=== PATIENT | female | born 1990 | race African-American/Black ===

== ENCOUNTER 2019-08-02 13:50 | Emergency (ER) | payer BC, OTHER ==
[~2019-08-02] VITALS: Ht 154.9 cm; Wt 59.0 kg
[~2019-08-02 13:50] MED LIST: HYDR-2761 PO
--- NOTE | 2019-08-02 14:52 | PHYS DOC ---
Past Medical History Past Medical History: No Pertinent History Past Surgical History: Appendectomy, Alcohol Use: None Drug Use: None Adult General Chief Complaint Chief Complaint: ABDOMINAL PAIN HPI HPI Patient is a 28 year old female patient without medical problem who presents with complaint of nausea and vomiting and dizziness. Patient complaining of episodes of nausea and vomiting for the last 2 weeks and states she has at least 3 episodes of vomiting after eating every day with upper abdominal pain as a sharp pain without radiation. Patient complaining of generalized weakness and dizziness as a constant problem for the same time. Patient denies urinary symptoms, diarrhea and constipation, fever and chills, history of the same problem. Patient had history of appendectomy and cholecystectomy. Patient admitted to use marijuana. Review of Systems Review of Systems Constitutional: Denies fever or chills [] Eyes: Denies change in visual acuity, redness, or eye pain [] HENT: Denies nasal congestion or sore throat [] Respiratory: Denies cough or shortness of breath [] Cardiovascular: No additional information not addressed in HPI [] GI: Reports abdominal pain, nausea, vomiting, denies bloody stools or diarrhea [] : Denies dysuria or hematuria [] Musculoskeletal: Denies back pain or joint pain [] Integument: Denies rash or skin lesions [] Neurologic: Denies headache, focal weakness or sensory changes [] Endocrine: Denies polyuria or polydipsia [] All other systems were reviewed and found to be within normal limits, except as documented in this note. Current Medications Current Medications Current Medications Medications (Trade) Dose Ordered Sig/Yovani Start Time Stop Time Status Last Admin Dose Admin Famotidine (Pepcid Vial) 20 mg 1X ONCE 08/02/19 16:15 08/02/19 16:16 DC Ketorolac Tromethamine (Toradol 30mg Vial) 30 mg 1X ONCE 08/02/19 16:15 08/02/19 16:16 DC Ondansetron HCl (Zofran) 4 mg 1X ONCE 08/02/19 15:00 08/02/19 15:01 DC 08/02/19 15:10 4 MG Sodium Chloride 1,000 ml @ 1,000 mls/hr Q1H 08/02/19 14:53 08/02/19 15:52 DC 08/02/19 15:10 1,000 MLS/HR Allergies Allergies Allergies Coded Allergies Type Severity Reaction Last Updated Verified No Known Drug Allergies 07/16/18 No Physical Exam Physical Exam Constitutional: Well developed, well nourished, mild distress, non-toxic appearance. [] HENT: Normocephalic, atraumatic, bilateral external ears normal, oropharynx moist, no oral exudates, nose normal. [] Eyes: PERRLA, EOMI, conjunctiva normal, no discharge. [] Neck: Normal range of motion, no tenderness, supple, no stridor. [] Cardiovascular:Heart rate regular rhythm, no murmur [] Lungs & Thorax: Bilateral breath sounds clear to auscultation [] Abdomen: Bowel sounds normal, soft, no tenderness, no masses, no pulsatile masses. [] Skin: Warm, dry, no erythema, no rash. [] Back: No tenderness, no CVA tenderness. [] Extremities: No tenderness, no cyanosis, no clubbing, ROM intact, no edema. [] Neurologic: Alert and oriented X 3, normal motor function, normal sensory function, no focal deficits noted. [] Psychologic: Affect anxious, judgement normal, mood normal. [] Current Patient Data Vital Signs Vital Signs Date Time Temp Pulse Resp B/P (MAP) Pulse Ox O2 Delivery O2 Flow Rate FiO2 08/02/19 14:15 98.4 117 22 133/87 (102) 100 Room Air 98.4 Lab Values Laboratory Tests Test 08/02/19 14:15 08/02/19 14:22 White Blood Count 7.7 x10^3/uL (4.0-11.0) Red Blood Count 5.29 x10^6/uL (3.50-5.40) Hemoglobin 15.2 g/dL (12.0-15.5) Hematocrit 45.4 % (36.0-47.0) Mean Corpuscular Volume 86 fL (79-100) Mean Corpuscular Hemoglobin 29 pg (25-35) Mean Corpuscular Hemoglobin Concent 33 g/dL (31-37) Red Cell Distribution Width 15.6 % (11.5-14.5) H Platelet Count 260 x10^3/uL (140-400) Neutrophils (%) (Auto) 70 % (31-73) Lymphocytes (%) (Auto) 22 % (24-48) L Monocytes (%) (Auto) 7 % (0-9) Eosinophils (%) (Auto) 0 % (0-3) Basophils (%) (Auto) 1 % (0-3) Neutrophils # (Auto) 5.4 x10^3/uL (1.8-7.7) Lymphocytes # (Auto) 1.7 x10^3/uL (1.0-4.8) Monocytes # (Auto) 0.6 x10^3/uL (0.0-1.1) Eosinophils # (Auto) 0.0 x10^3/uL (0.0-0.7) Basophils # (Auto) 0.0 x10^3/uL (0.0-0.2) Urine Collection Type Unknown Urine Color Randi Urine Clarity Clear Urine pH 6.0 Urine Specific Compton >=1.030 Urine Protein 30 mg/dL (NEG-TRACE) Urine Glucose (UA) Negative mg/dL (NEG) Urine Ketones (Stick) >=80 mg/dL (NEG) Urine Blood Small (NEG) Urine Nitrite Negative (NEG) Urine Bilirubin Small (NEG) Urine Urobilinogen Dipstick 1.0 mg/dL (0.2 mg/dL) Urine Leukocyte Esterase Small (NEG) Urine RBC 1-2 /HPF (0-2) Urine WBC 1-4 /HPF (0-4) Urine Squamous Epithelial Cells Mod /LPF Urine Bacteria Few /HPF (0-FEW) Urine Mucus Marked /LPF Sodium Level 135 mmol/L (136-145) L Potassium Level 3.6 mmol/L (3.5-5.1) Chloride Level 97 mmol/L (98-107) L Carbon Dioxide Level 25 mmol/L (21-32) Anion Gap 13 (6-14) Blood Urea Nitrogen 20 mg/dL (7-20) Creatinine 0.8 mg/dL (0.6-1.0) Estimated GFR (Cockcroft-Gault) 104.9 BUN/Creatinine Ratio 25 (6-20) H Glucose Level 84 mg/dL (70-99) Calcium Level 10.0 mg/dL (8.5-10.1) Total Bilirubin 0.4 mg/dL (0.2-1.0) Aspartate Amino Transferase (AST) 21 U/L (15-37) Alanine Aminotransferase (ALT) 26 U/L (14-59) Alkaline Phosphatase 69 U/L (46-116) Total Protein 8.3 g/dL (6.4-8.2) H Albumin 4.7 g/dL (3.4-5.0) Albumin/Globulin Ratio 1.3 (1.0-1.7) Lipase 114 U/L (73-393) Urine Opiates Screen Neg (NEG) Urine Methadone Screen Neg (NEG) Urine Barbiturates Neg (NEG) Urine Phencyclidine Screen Neg (NEG) Urine Amphetamine/Methamphetamine Neg (NEG) Urine Benzodiazepines Screen Neg (NEG) Urine Cocaine Screen Neg (NEG) Urine Cannabinoids Screen Pos (NEG) Urine Ethyl Alcohol Neg (NEG) POC Urine HCG, Qualitative Hcg negative (Negative) Laboratory Tests 08/02/19 14:15 Laboratory Tests 08/02/19 14:15 EKG EKG [] Radiology/Procedures Radiology/Procedures [] Course & Med Decision Making Course & Med Decision Making Pertinent Imaging studies reviewed. (See chart for details) Evaluation of patient in ER showed 28-year-old female patient with marijuana abuse and complaining of nausea and vomiting for 2 weeks and dizziness. Patient had unremarkable physical exam and labs except for positive UDS for marijuana. UA showed ketones. Patient treated with IV fluid and Zofran and tolerated oral intake. Patient advised to stop using marijuana and follow up with primary care physician for chronic nausea and vomiting. I've spoken with the patient and/or caregivers. I've explained the patient's condition, diagnosis and treatment plan based on information available to me at this time. I've answered the patient's and/or caregivers questions and addressed any concerns. The patient and/or caregivers have a good understanding the patient's diagnosis, condition and treatment plan as can be expected at this point. Vital signs have been stabilized. The patient's condition is stable for discharge from the emergency department. The patient will pursue further outpatient evaluation with her primary care provider or other designated consulting physician as outlined in the discharge instructions. Patient and/or caregivers are agreeable to this plan of care and follow-up instructions have been explained in detail. The patient and/or caregiv ers have received these instructions in written format and expressed understanding of these discharge instructions. The patient and her caregivers are aware that if any significant change in condition or worsening of symptoms should prompt him to immediately return to this of the closest emergency d epartment. If an emergent department is not readily available I would encourage him to call 911. Diamante Disclaimer Dragon Disclaimer This electronic medical record was generated, in whole or in part, using a voice recognition dictation system. Departure Departure Impression: Primary Impression: Nausea and vomiting Additional Impressions: Dizziness Marijuana abuse Disposition: HOME, SELF-CARE (at 1634) Condition: IMPROVED Referrals: NO PCP (PCP) Patient Instructions: Marijuana Abuse-Brief, Nausea and Vomiting Additional Instructions: Drink plenty of liquids Follow-up with your primary care physician in 3-5 days Return to ER if not getting better Scripts Famotidine (PEPCID) 20 Mg Tablet 20 MG PO BID, #30 TAB Prov: ANIYA BERNAL MD 08/02/19 Metoclopramide Hcl (REGLAN) 10 Mg Tablet 1 TAB PO TID, #30 TAB 0 Refills before food and bedtime Prov: ANIYA BERNAL MD 08/02/19 Problem Qualifiers Primary Impression: Nausea and vomiting Vomiting type: unspecified Vomiting Intractability: non-intractable Qualified Codes: R11.2 - Nausea with vomiting, unspecified ANIYA BERNAL MD Aug 02, 2019 14:52
[2019-08-02 14:53] LABS: BASO % 1 % (0-3); EOS % 0 % (0-3); HEMATOCRIT 45.4 % (36.0-47.0); HEMOGLOBIN 15.2 g/dL (12.0-15.5); LYMPH # 1.7 x10^3/uL (1.0-4.8); LYMPH % 22 % (24-48); MEAN CORPUSCULAR HEMOGLOBIN 29 pg (25-35); MEAN CORPUSCULAR HGB CONC 33 g/dL (31-37); MEAN CORPUSCULAR VOLUME 86 fL (79-100); MONO # 0.6 x10^3/uL (0.0-1.1); MONO % 7 % (0-9); NEUT # 5.4 x10^3/uL (1.8-7.7); NEUT % 70 % (31-73); PLATELET COUNT 260 x10^3/uL (140-400); RED BLOOD COUNT 5.29 x10^6/uL (3.50-5.40); RED CELL DISTRIBUTION WIDTH 15.6 % (11.5-14.5); WHITE BLOOD COUNT 7.7 x10^3/uL (4.0-11.0)
[2019-08-02] MEDS ORDERED: IV NORMAL SALINE 1000ML BAG 1,000 ML IV SCH (14:53)
[2019-08-02 14:55] LABS: BILIRUBIN,URINE SMALL (NEG); CLARITY,URINE CLEAR; COLOR,URINE AMBER; NITRITE,URINE NEGATIVE (NEG); PROTEIN,URINE 30 mg/dL (NEG-TRACE)
[2019-08-02] MEDS ORDERED: ONDANSETRON PF 4 MG/2 ML VIAL. IV ONE (15:00)
[2019-08-02 15:02] LABS: BACTERIA,URINE FEW /HPF (0-FEW); SQUAMOUS EPITHELIAL CELL,UR MOD /LPF
[2019-08-02 15:06] LABS: CREATININE 0.8 mg/dL (0.6-1.0); GFR 104.9; POTASSIUM 3.6 mmol/L (3.5-5.1)
[2019-08-02 15:12] LABS: ALBUMIN 4.7 g/dL (3.4-5.0); ALBUMIN/GLOBULIN RATIO 1.3 (1.0-1.7); TOTAL BILIRUBIN 0.4 mg/dL (0.2-1.0); TOTAL PROTEIN 8.3 g/dL (6.4-8.2)
[2019-08-02 15:38] LABS: BARBITURATES NEG (NEG); BENZODIAZEPINES NEG (NEG); CANNABINOIDS POS (NEG); COCAINE NEG (NEG); METHADONE NEG (NEG); OPIATES NEG (NEG); PHENCYCLIDINE NEG (NEG)
[2019-08-02 15:40] LABS: AMPHETAMINE/METHAMPHETAMINE NEG (NEG)
[2019-08-02] MEDS ORDERED: KETOROLAC 30 MG/ML VIAL. IVP ONE (16:15)
[2019-08-02] MEDS ORDERED: FAMOTIDINE 20 MG/2 ML VIAL IVP ONE (16:15)
[2019-08-02] MEDS ORDERED: METO10TA81 PO ×2 (16:35→16:40)
[2019-08-02] MEDS ORDERED: FAMO-63 PO ×2 (16:35→16:40)
[2019-08-02 16:54] VITALS: BP 124/88
== END 2019-08-02 17:17 | disposition home or self-care (01) ==
LOC: ER 13:50
DX: R11.2 Nausea with vomiting, unspecified (principal); R42 Dizziness and giddiness; F12.10 Cannabis abuse, uncomplicated; R53.1 Weakness; Z90.49 Acquired absence of other specified parts of digestive tract; Z90.89 Acquired absence of other organs; Z98.890 Other specified postprocedural states
CPT/HCPCS: 36415; 80053; 80307; 81001; 81025; 83690; 85025; 87086; 96361; 96374; 96375; 99284; J1885; J2405; J3490; J7030

== ENCOUNTER 2019-11-05 14:31 | Emergency (ER) | payer BC ==
[~2019-11-05] VITALS: Ht 152.4 cm; Wt 60.0 kg
[~2019-11-05 14:31] MED LIST changes: +FAMO-63 PO; +METO10TA81 PO
[2019-11-05 14:43] VITALS: BP 153/86
[2019-11-05] MEDS ORDERED: DICY10CA3 PO (14:46)
[2019-11-05] MEDS ORDERED: ONDA4TAB12 PO (14:46)
--- NOTE | 2019-11-05 14:47 | PHYS DOC ---
Past Medical History Past Medical History: No Pertinent History Past Surgical History: Appendectomy, Smoking Status: Never Smoker Alcohol Use: None Drug Use: None Adult General Chief Complaint Chief Complaint: NAUSEA/VOMITING/[facility] HPI Patient is a 29 year old female who presents with nausea, vomiting, diarrhea this been ongoing for 2 days. The patient also has a cough. Her kids are sick with the same symptoms at home. She denies shortness of breath or fever at this time however she has been having body aches. Complete ROS were reviewed and found to be within normal limits, except as documented in the HPI Allergies Allergies Allergies Coded Allergies Type Severity Reaction Last Updated Verified No Known Drug Allergies 07/16/18 No Physical Exam Physical Exam Constitutional: Well developed, well nourished, no acute distress, non-toxic appearance. [] HENT: Normocephalic, atraumatic, bilateral external ears normal, oropharynx moist, no oral exudates, nose normal. [] Cardiovascular:Heart rate regular rhythm, no murmur [] Lungs & Thorax: Bilateral breath sounds clear to auscultation [] Abdomen: Bowel sounds normal, soft, mild lower abdominal cramping, no masses, no pulsatile masses. [] Neurologic: Alert and oriented X 3, normal motor function, normal sensory function, no focal deficits noted. [] Psychologic: Affect normal, judgement normal, mood normal. [] EKG EKG [] Radiology/Procedures Radiology/Procedures [] Course & Med Decision Making Course & Med Decision Making Pertinent Labs and Imaging studies reviewed. (See chart for details) Discussed with the patient that symptoms are coronavirus source of GI symptoms. Her and her kids been sick with some kind of contagious illness. She also has developed a cough. Discussed with the patient that she needs to stay home and self isolate for 14 days. I will prescribe her some Bentyl and Zofran. Vitals are stable Dragon Disclaimer Dragon Disclaimer This electronic medical record was generated, in whole or in part, using a voice recognition dictation system. Departure Departure Impression: Primary Impression: Nausea & vomiting Additional Impressions: Diarrhea Cough Suspected 2019-nCoV infection Disposition: HOME, SELF-CARE Condition: STABLE Referrals: NO PCP (PCP) Patient Instructions: Nausea and Vomiting, Viral Syndrome Additional Instructions: Thank you for visiting [facility]. We appreciate you trusting us with your care. If any additional problems come up don't hesitate to return to visit us. Please follow up with your primary care provider so they can plan additional care if needed and know about the problem that you had. If symptoms worsen come back to the Emergency Department. Any concerning symptoms that start such as chest pain, shortness of air, weakness or numbness on one side of the body, running high fevers or any other concerning symptoms return to the ER. You have a viral syndrome which may include symptoms like muscle aches, fevers, chills, runny nose, cough, sneezing, sore throat, vomiting, or diarrhea. One of the potential viruses that you may have is SARS-CoV-2, the virus that causes COVID-19, also known as the Coronavirus. You are just as likely to have a different viral infection such as the common cold, flu, etc. Most patients with the Coronavirus have mild symptoms and recover on their own. Resting, staying hydrated, and sleep from known cases can be helpful. As of todays visit, you are well enough to go home and treat your symptoms with oral fluids and over the counter medications. Coronavirus testing is not performed on most people with mild symptoms who are being discharged from the emergency department. If Coronavirus testing was performed the results will not be available for possibly up to 2-3 days. If your result is positive you will be contacted. Please follow the following precautions at home: 1) Stay home except to get medical care. 2) As advised by the CDC we recommend you stay in your home and minimize contact with other people. We do not want you to spread the infection. 3) Those who are older or have significant medical issues may have more severe symptoms from this infection. We recommend self-isolation,FOR AT LEAST 7 DAYS after your 1st day of symptoms. AFTER you feel better please wait AT LEAST ANOTHER WEEK before returning to regular activities and being around other people! 4) IF you become sicker and have difficulty breathing, chest pain, unable to eat/drink, severe vomiting, diarrhea, or weakness you may need to return to the Emergency Department. 5) You should restrict activities outside your home, except for getting medical care. DO NOT go to work, school, or public areas. Avoid using public transportation, ride sharing, or taxis. 6) Separate yourself from other people in your home. You should use a separate bathroom if possible. 7) Avoid sharing personal household items such as dishes, cups, eating utensils, towels, etc. 8) Clean all high touch surfaces every day (door knobs, counter tops, etc). Use a household cleaning spray or wipe per label instructions. 9) Clean your hands often. Wash your hands with soap and water for at least 20 seconds. 10) Cover your mouth and nose with a tissue when you cough or sneeze. 11) Throw used tissues in a trash can and immediately wash your hands. For additional resources please visit the CDC website or the [facility] ([phone]). Scripts Ondansetron (ONDANSETRON ODT) 4 Mg Tab.rapdis 1 TAB PO PRN Q6-8HRS PRN for NAUSEA, #20 TAB Prov: NYASIA SALAZAR APRN 11/05/19 Dicyclomine Hcl (DICYCLOMINE HCL) 10 Mg Capsule 1 CAP PO PRN Q6HRS PRN for PAIN, #20 CAP 0 Refills Prov: NYASIA SALAZAR APRN 11/05/19 Problem Qualifiers Primary Impression: Nausea & vomiting Vomiting type: unspecified Vomiting Intractability: non-intractable Qualified Codes: R11.2 - Nausea with vomiting, unspecified Additional Impressions: Diarrhea Diarrhea type: unspecified type Qualified Codes: R19.7 - Diarrhea, unspecified NYASIA SALAZAR APRN Nov 05, 2019 14:47
== END 2019-11-05 14:55 | disposition home or self-care (01) ==
LOC: ER 14:31
DX: R11.2 Nausea with vomiting, unspecified (principal); R19.7 Diarrhea, unspecified; R05 Cough; Z90.89 Acquired absence of other organs; Z98.890 Other specified postprocedural states; Z20.828 Contact with and (suspected) exposure to other viral communicable diseases
CPT/HCPCS: 99283

== ENCOUNTER 2020-12-26 07:16 | Emergency (ER) | payer BC ==
[~2020-12-26] VITALS: Ht 152.4 cm; Wt 63.6 kg
[~2020-12-26 07:16] MED LIST changes: +DICY10CA3 PO; +ONDA4TAB12 PO
--- NOTE | 2020-12-26 07:52 | PHYS DOC ---
Past Medical History Additional Past Medical Histor: cyclic vomiting syndrome Past Surgical History: Tubal ligation Smoking Status: Never Smoker Alcohol Use: Occasionally Drug Use: None Social History Narrative: MARIJUANA USE DAILY General Adult EDM: Chief Complaint: DIZZY/LIGHT HEADED HPI: HPI: Patient is a 30 year old female who presented to ER due to nausea vomiting since yesterday. Patient feels weak and dehydrated, feeling dizzy, and was unable to keep anything down. Patient denies any chest pain, no trouble breathing, no headache, no cough or fever. Patient denies any abdominal pain. Patient denies any numbness or tingling sensation anywhere. Patient has history of cyclic vomiting syndrome, admitted of using marijuana frequently. Patient will get admitted at [facility] last month for the same problem. Review of Systems: Review of Systems: Constitutional: Denies fever or chills. [] Eyes: Denies change in visual acuity. [] HENT: Denies nasal congestion or sore throat. [] Respiratory: Denies cough or shortness of breath. [] Cardiovascular: Denies chest pain or edema. [] GI: Denies any abdominal pain, positive for nausea vomiting. No diarrhea. : Denies dysuria. [] Musculoskeletal: Denies back pain or joint pain. [] Integument: Denies rash. [] Neurologic: Denies headache, focal weakness or sensory changes. [] Endocrine: Denies polyuria or polydipsia. [] Lymphatic: Denies swollen glands. [] Psychiatric: Denies depression or anxiety. [] Heart Score: C/O Chest Pain: N/A Risk Factors: Risk Factors: DM, Current or recent (<one month) smoker, HTN, HLP, family history of CAD, obesity. Risk Scores: Score 0 - 3: 2.5% MACE over next 6 weeks - Discharge Home Score 4 - 6: 20.3% MACE over next 6 weeks - Admit for Clinical Observation Score 7 - 10: 72.7% MACE over next 6 weeks - Early Invasive Strategies Current Medications: Current Medications Medications (Trade) Dose Ordered Sig/Yovani Start Time Stop Time Status Last Admin Dose Admin Metoclopramide HCl (Reglan Vial) 10 mg 1X ONCE 12/26/20 08:00 12/26/20 08:01 Sodium Chloride 1,000 ml @ 1,000 mls/hr Q1H 12/26/20 08:00 12/26/20 08:59 Allergies: Allergies: Allergies Coded Allergies Type Severity Reaction Last Updated Verified No Known Drug Allergies 07/16/18 No Physical Exam: PE: Constitutional: Well developed, well nourished, no acute distress, non-toxic appearance. [] HENT: Normocephalic, atraumatic, bilateral external ears normal, oral mucosa is dry, no oral exudates, nose normal. [] Eyes: PERRLA, EOMI, conjunctiva normal, no discharge. [] Neck: Normal range of motion, no tenderness, supple, no stridor. [] Cardiovascular:Heart rate regular rhythm, no murmur [] Lungs & Thorax: Bilateral breath sounds clear to auscultation [] Abdomen: Bowel sounds normal, soft, no tenderness, no masses, no pulsatile masses. [] Skin: Warm, dry, no erythema, no rash. [] Back: No tenderness, no CVA tenderness. [] Extremities: No tenderness, no cyanosis, no clubbing, ROM intact, no edema. [] Neurologic: Alert and oriented X 3, normal motor function, normal sensory function, no focal deficits noted. [] Psychologic: Affect normal, judgement normal, mood normal. [] Current Patient Data: Vital Signs: Vital Signs Date Time Temp Pulse Resp B/P (MAP) Pulse Ox O2 Delivery O2 Flow Rate FiO2 12/26/20 07:33 98.5 103 22 155/78 (103) 100 Room Air 98.5 EKG: EKG: [] Radiology/Procedures: Radiology/Procedures: [][facility] [address] [place] [address] IMAGING REPORT Signed PATIENT: RUSSELL ENG ACCOUNT: [id number] : 1990 LOCATION: ER AGE: 30 SEX: F EXAM STATUS: REG ER ORD. PHYSICIAN: SEAN AGUSTIN DO REASON: nausea, vomiting PROCEDURE: ACUTE ABDOMEN SERIES Exam performed: Single view abdomen KUB. Indication:Nausea, vomiting Date of Service: 12/26/2020 Comparison: None available Single supine view of the abdomen findings: Nonspecific, nondistended bowel loops are present. No abnormal radiopaque density is seen projecting over the kidneys or in the expected course of the ureters. There is a IUD in place. The bony structures are normal. Impression: 1. No definite abnormality seen in the x-ray abdomen KUB. Electronically signed by: Cheli Bell MD (12/26/2020 9:43 AM) [id number] DICTATED and SIGNED BY: CHELI BELL MD DATE: 12/26/20 [id number] Course & Med Decision Making: Course & Med Decision Making Pertinent Labs and Imaging studies reviewed. (See chart for details) Patient was given medication in the ED, she feLT much better. Patient WAS given IV fluid as well. Patient will be discharged home with antinausea medication. Dragon Disclaimer: DragStoredIQ Disclaimer: This electronic medical record was generated, in whole or in part, using a voice recognition dictation system. Departure Departure Impression: Primary Impression: Nausea & vomiting Additional Impression: Hypokalemia Disposition: HOME / SELF CARE / HOMELESS Condition: STABLE Referrals: NO PCP (PCP) Please follow up with [facility] this week. [address], [address] [place] [address] Phone number: [phone] Patient Instructions: Hypokalemia, Nausea and Vomiting Additional Instructions: Thank you for visiting our Emergency Department. We appreciate you trusting us with your care. If any additional problems come up don't hesitate to return to visit us. Please follow up with your primary care provider so they can plan additional care if needed and know about the problem that you had. If symptoms worsen come back to the Emergency Department. Any concerning symptoms that start such as chest pain, shortness of air, weakness or numbness on one side of the body, running high fevers or any other concerning symptoms return to the ER. Scripts Metoclopramide Hcl (REGLAN) 10 Mg Tablet 1 TAB PO QID PRN for NAUSEA for 30 Days, #120 TAB 0 Refills before food and bedtime Prov: SEAN AGUSTIN DO 12/26/20 SEAN AGUSTIN DO December 26, 2020 07:51
[2020-12-26] MEDS ORDERED: METOCLOPRAMIDE HCL 10 MG/2 ML VIAL. IVP ONE (08:00)
[2020-12-26] MEDS ORDERED: IV NORMAL SALINE 1000ML BAG 1,000 ML IV SCH (08:00)
[2020-12-26 08:07] LABS: BASO # 0.1 x10^3/uL (0.0-0.2); BASO % 0 % (0-3); EOS % 0 % (0-3); HEMATOCRIT 41.2 % (36.0-47.0); HEMOGLOBIN 13.6 g/dL (12.0-15.5); LYMPH # 1.4 x10^3/uL (1.0-4.8); LYMPH % 11 % (24-48); MEAN CORPUSCULAR HEMOGLOBIN 29 pg (25-35); MEAN CORPUSCULAR HGB CONC 33 g/dL (31-37); MEAN CORPUSCULAR VOLUME 88 fL (79-100); MONO # 0.9 x10^3/uL (0.0-1.1); MONO % 7 % (0-9); NEUT # 10.4 x10^3/uL (1.8-7.7); NEUT % 81 % (31-73); PLATELET COUNT 291 x10^3/uL (140-400); RED BLOOD COUNT 4.68 x10^6/uL (3.50-5.40); RED CELL DISTRIBUTION WIDTH 15.3 % (11.5-14.5); WHITE BLOOD COUNT 12.8 x10^3/uL (4.0-11.0)
--- NOTE | 2020-12-26 08:18 | EKG ---
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
[2020-12-26 08:28] LABS: PREG TEST PT QUAL NEGATIVE (NEG)
[2020-12-26 08:29] LABS: CREATININE 0.7 mg/dL (0.6-1.0); GFR 120.6; POTASSIUM 3.1 mmol/L (3.5-5.1)
[2020-12-26 08:35] LABS: ALBUMIN 4.6 g/dL (3.4-5.0); ALBUMIN/GLOBULIN RATIO 1.4 (1.0-1.7); MAGNESIUM 1.8 mg/dL (1.8-2.4); TOTAL BILIRUBIN 0.4 mg/dL (0.2-1.0)
[2020-12-26] MEDS ORDERED: POTASSIUM CHLORIDE 20MEQ 100 ML IV ONE (09:00)
[2020-12-26] MEDS ORDERED: IV NORMAL SALINE 1000ML BAG 1,000 ML IV ONE (09:00)
[2020-12-26] MEDS ORDERED: ONDANSETRON PF 4 MG/2 ML VIAL. IVP ONE (09:15)
--- NOTE | 2020-12-26 09:46 | RAD ---
Exam performed: Single view abdomen KUB. Indication:Nausea, vomiting Date of Service: 12/26/2020 Comparison: None available Single supine view of the abdomen findings: Nonspecific, nondistended bowel loops are present. No abnormal radiopaque density is seen projecting over the kidneys or in the expected course of the ureters. There is a IUD in place. The bony structu res are normal. Impression: 1. No definite abnormality seen in the x-ray abdomen KUB. Electronically signed by: Cheli Arias MD (12/26/2020 9:43 AM) [id number]
[2020-12-26 11:19] VITALS: BP 133/88
[2020-12-26] MEDS ORDERED: METO10TA81 PO (11:26)
[2020-12-26] MEDS ORDERED: POTASSIUM PHOSPHATE,MONOBASIC 500 MG TABLET. PO ONE (11:30)
== END 2020-12-26 11:50 | disposition home or self-care (01) ==
LOC: ER 07:16
DX: R11.2 Nausea with vomiting, unspecified (principal); E87.6 Hypokalemia; R42 Dizziness and giddiness; R53.1 Weakness; Z98.51 Tubal ligation status
CPT/HCPCS: 36415; 74022; 80053; 83690; 83735; 84703; 85025; 93005; 96361; 96365; 96366; 96375; 99285; J2405; J2765; J3480; J7030

== ENCOUNTER 2021-06-20 12:18 | Emergency (ER) | payer BC ==
[~2021-06-20] VITALS: Ht 152.4 cm; Wt 68.1 kg
[2021-06-20] MEDS ORDERED: LIDOCAINE 2% Multi-Dose 20 ML VIAL. IJ ONE (12:45)
--- NOTE | 2021-06-20 12:52 | PHYS DOC ---
Past Medical History Additional Past Medical Histor: cyclic vomiting syndrome (ABAD RUEDA APRN) Past Surgical History: Tubal ligation (ABAD RUEDA [employer] SAL[employer] MANAGER) Smoking Status: Never Smoker Alcohol Use: Occasionally Drug Use: None (ABAD RUEDA APRN) General Adult EDM: Chief Complaint: SKIN PROBLEM HPI: HPI: Patient is a 30 year old female who presents with vaginal abscess to the right lower labial area. Denies fever, urinary symptoms, STD, abnormal vaginal discharge. She states it has been there for 4 days. Rates her pain at a 5 out of 10. (ABAD RUEDA SECURITY SALES MANAGER) Review of Systems: Review of Systems: Constitutional: Denies fever or chills. [] Eyes: Denies change in visual acuity. [] HENT: Denies nasal congestion or sore throat. [] Respiratory: Denies cough or shortness of breath. [] Cardiovascular: Denies chest pain or edema. [] GI: Denies abdominal pain, nausea, vomiting, bloody stools or diarrhea. [] : Denies dysuria. + Vaginal pain vaginal abscess [] Musculoskeletal: Denies back pain or joint pain. [] Integument: Denies rash. + Vaginal abscess [] Neurologic: Denies headache, focal weakness or sensory changes. [] Endocrine: Denies polyuria or polydipsia. [] Lymphatic: Denies swollen glands. [] Psychiatric: Denies depression or anxiety. [] (ABAD RUEDA APRN) Heart Score: C/O Chest Pain: No (ABAD RUEDA APRN) Current Medications: Current Medications Medications (Trade) Dose Ordered Sig/Yovani Start Time Stop Time Status Last Admin Dose Admin Lidocaine HCl (Lidocaine 2% 20ml Vial) 20 ml 1X ONCE 06/20/21 12:45 06/20/21 12:46 DC (ABDA RUEDA [employer] SALES MANAGER) Allergies: Allergies: Allergies Coded Allergies Type Severity Reaction Last Updated Verified No Known Drug Allergies 07/16/18 No (ABAD RUEDA [employer] SALES MANAGER) Physical Exam: PE: Constitutional: Well developed, well nourished, no acute distress, non-toxic appearance. [] HENT: Normocephalic, atraumatic, bilateral external ears normal, oropharynx moist, no oral exudates, nose normal. [] Eyes: PERRLA, EOMI, conjunctiva normal, no discharge. [] Neck: Normal range of motion, no tenderness, supple, no stridor. [] Cardiovascular:Heart rate regular rhythm, no murmur [] Lungs & Thorax: Bilateral breath sounds clear to auscultation [] Abdomen: Bowel sounds normal, soft, no tenderness, no masses, no pulsatile masses. [] Skin: Warm, dry, no erythema, no rash. Vaginal abscess to the right lower labia[] Back: No tenderness, no CVA tenderness. [] Extremities: No tenderness, no cyanosis, no clubbing, ROM intact, no edema. [] Neurologic: Alert and oriented X 3, normal motor function, normal sensory function, no focal deficits noted. [] Psychologic: Affect normal, judgement normal, mood normal. [] (ABAD RUEDA APRN) Current Patient Data: Labs: Laboratory Tests Test 06/20/21 12:27 POC Urine HCG, Qualitative Hcg negative (Negative) (ABAD RUEDA APRN) Vital Signs: Vital Signs Date Time Temp Pulse Resp B/P (MAP) Pulse Ox O2 Delivery O2 Flow Rate FiO2 06/20/21 13:06 92 16 111/64 (80) 99 Room Air 06/20/21 12:20 99.0 98 16 109/70 (83) 98 Room Air 99.0 (MAK HASKINS DO) EKG: EKG: [] (ABAD RUEDA APRN) Radiology/Procedures: Radiology/Procedures: [] (ABAD RUEDA APRN) Course & Med Decision Making: Course & Med Decision Making Pertinent Labs and Imaging studies reviewed. (See chart for details) See HPI. Ambulatory steady gait. Speaks in full clear sentences. No associated cellulitis. No drainage. Soft tender abscess. I&D Location: Right lower labia Anesthesia: 2% lidocaine Scalpel size: #11 Skin: Normal Drainage: large amount of white foul smelling drainage Packing: None Patient tolerated the procedure well with no complications. The area was prepped and draped in usual sterile fashion. Area was cleaned with chloehexidine prior to procedure. Return for signs and symptoms of infection education given. Patient to return in 48 hours for wound recheck. [] (ABAD RUEDA APRN) Course & Med Decision Making I have participated in the care of this patient and I have reviewed and agree with all pertinent clinical information above including history, exam, and recommendations. Mak Haskins DO (MAK HASKINS DO) Diamante Disclaimer: Diamante Disclaimer: This electronic medical record was generated, in whole or in part, using a voice recognition dictation system. 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 Take antibiotic as prescribed and with food. Use sitz bath's. If anything worsens or you begin to have a fever or worsening pain you can return emergency room. Scripts Sulfamethoxazole/Trimethoprim (BACTRIM DS TABLET) 1 Each Tablet 1 TAB PO BID for 10 Days, #20 TAB 0 Refills Prov: ABAD RUEDA APRN 06/20/21 ABAD RUEDA APRN Jun 20, 2021 12:52 MAK HASKINS DO Jun 20, 2021 14:38
[2021-06-20 13:06] VITALS: BP 111/64
[2021-06-20] MEDS ORDERED: SULF1TAB24 PO (13:07)
== END 2021-06-20 13:24 | disposition home or self-care (01) ==
LOC: ER 12:18
DX: N76.0 Acute vaginitis (principal); Z98.51 Tubal ligation status
CPT/HCPCS: 56405; 81025; 99284

== ENCOUNTER 2021-10-18 16:55 | Emergency (ER) | payer BC ==
[~2021-10-18] VITALS: Ht 152.4 cm; Wt 65.9 kg
[2021-10-18 16:55] VITALS: BP 120/76
[~2021-10-18 16:55] MED LIST changes: +SULF1TAB24 PO
== END 2021-10-18 19:00 | disposition left against medical advice (07) ==
LOC: ER 16:55
DX: R42 Dizziness and giddiness (principal); R11.10 Vomiting, unspecified; R06.4 Hyperventilation; Z53.21 Procedure and treatment not carried out due to patient leaving prior to being seen by health care provider
CPT/HCPCS: 82962